=== PATIENT | female | born 1945 | race Caucasian/White ===

== ENCOUNTER 2017-02-16 15:23 | Observation (INO) ==
--- NOTE | 2017-02-16 19:14 | Internal Med History&Physical ---
Date of Encounter: 02/16/17 Time of Encounter: 19:10 Assessment and Plan (1) Coronary artery disease Current visit: Yes Status: Acute Continue with aspirin and Brilinta. Hold beta erna due to reported episodes of low heart rate. Trend troponin to rule out ACS. Qualifiers: Coronary Disease-Associated Artery/Lesion type: [place] artery [place] vs. transplanted heart: [place] heart Associated angina: without angina Qualified Code(s): I25.10 - Atherosclerotic heart disease of [place] coronary artery without angina pectoris (2) COPD (chronic obstructive pulmonary disease) Current visit: No Status: Chronic No evidence of exacerbation. We will use DuoNeb inhaled as needed. Qualifiers: COPD type: emphysema Emphysema type: unspecified Qualified Code(s): J43.9 - Emphysema, unspecified (3) Tobacco abuse Current visit: No Status: Acute Advised smoking cessation. She is not ready to quit. (4) Hyperlipemia Current visit: No Status: Acute Continue with statin. Qualifiers: Hyperlipidemia type: unspecified Qualified Code(s): E78.5 - Hyperlipidemia , unspecified (5) Supraventricular arrhythmia Current visit: Yes Status: Acute There is no evidence of A. fib on EKG. Her EKGs when compared with a prior EKG from December 2015 looked more like normal sinus rhythm with short UT interval with multiple PVCs. The patient's son reports her heart rate was as low as 30 at [facility]. I suspect symptomatic sinus bradycardia versus heart block. She does have episodes of dizziness which could be related to bradycardia. She denies syncopal episodes. Monitor patient on telemetry. Hold carvedilol. Trend troponin. Obtain echocardiogram in the morning. Consult cardiology. Internal Medicine - H&P: HPI Chief complaint: Shortness of breath Admitted From: Hospital to Hospital Transfer Plans for Post Hospital Care: Home History of present illness: Ms. Morris is a 71 year old female with past medical history significant for COPD, hyperlipidemia and CAD/status post stent placement who was sent from [facility] urgent care for evaluation and management of new onset atrial fibrillation. She presented there due to shortness of breath which he reports as moderate, associated with cough mostly dry but sometimes productive of small amounts of green sputum. Shortness of breath has been going on for 2 months and she has received several treatments that have not improved her symptoms. She denies associated fevers chills and chest pain. While evaluated at [facility] care her heart rate was irregular and per her son's report dropped into the 30s. An EKG was performed there and was read as atrial fibrillation and therefore the patient was referred for transfer to our facility for further workup. Patient reports episodes of dizziness and lightheadedness, more generalized weakness, shortness of breath, wheezing, chronic cough. The remainder of 10 point review of systems was negative. Past medical history as above Past surgical history: Cholecystectomy and Family history positive for premature coronary artery disease in both parents. Patient's father at age 43 of a massive MT. Patient's mother had open heart surgery in her 50s. Social history: She smokes 10 cigarettes a day, trying to cut down, denies alcohol and drug use. Past Med Surg Social Fam HX - Past Medical History Medical history: arthritis, COPD, coronary artery disease, hyperlipidemia, hypertension, myocardial infarction Psychiatric history: depression - Social History Smoking Status: Current every day smoker Smokeless Tobacco Status: No Alcohol use: none Drug use: none Internal Medicine - H&P: Meds Ezetimibe [Zetia] 10 mg PO DAILY 02/13/15 [History] Sertraline [Zoloft] 50 mg PO DAILY 02/13/15 [History] Zolpidem [Ambien] 10 mg PO HS PRN 02/13/15 [History] Gabapentin [Neurontin] 600 mg PO TID 01/27/16 [History] Hydrocodone/Acetaminophen [[place] 7.5-325 Tablet] 1 tab PO Q6H PRN 01/27/16 [ History] Albuterol Sulfate [Albuterol Inhaler] 2 puff IH Q4HR PRN 01/28/16 [History] Aspirin 81 mg PO DAILY 01/28/16 [History] Cyanocobalamin (Vitamin B-12) [Vitamin B-12] 1,000 mcg SL DAILY 01/28/16 [ History] Nitroglycerin [Nitrostat] 0.4 mg SL Q5M PRN 01/28/16 [History] Atorvastatin [Lipitor] 80 mg PO HS #30 tablet 01/29/16 [Rx] Carvedilol [Coreg] 6.25 mg PO BIDWM #0 tablet 01/29/16 [Rx] Isosorbide MONOnitrate (24 HR) [Imdur] 30 mg PO DAILY #0 tab.er.24h 01/29/16 [Rx ] Lisinopril [Zestril] 2.5 mg PO DAILY #30 tablet 01/29/16 [Rx] Ticagrelor [Brilinta] 90 mg PO BID #60 tablet 01/29/16 [Rx] 3 Allergy/AdvReac Type Severity Reaction Status Date / Time atropine [From ] Allergy Hives Verified 04/03/15 13:00 Hyoscyamine [From ] Allergy Hives Verified 04/03/15 13:00 phenobarbital Allergy Swelling Verified 02/13/15 12:01 of Lip/Tongue/Throat scopolamine [From ] Allergy Hives Verified 04/03/15 13:00 All Systems PM: A 10-system review of systems was performed and is negative for pertinent findings except as documented above in the HPI. - Constitutional Vitals: Temp Pulse Resp BP Pulse Ox 98.1 F 85 16 144/74 96 02/16/17 18:01 02/16/17 18:01 02/16/17 18:01 02/16/17 18:01 02/16/17 18:01 General appearance: Present: A&O X 3, no acute distress - Eye Eye exam: Present: PERRL, conjuntiva pink, sclera anicteric Pupils: Present: PERRL - Respiratory Respiratory exam: Present: decreased breath sounds, CTAB. Absent: accessory muscle use, rales, rhonchi, wheezes - Cardiovascular Cardiovascular exam: Present: irregular rhythm, +S1, +S2. Absent: diastolic murmur, gallop, rubs, systolic murmur - GI/Abdominal GI/Abdominal exam: Present: normal bowel sounds, soft, no peritoneal signs. Absent: distended, tenderness - Extremities Exam Extremities exam: Present: warm, radial pulses palpable and symmetrical. Absent : calf tenderness, cyanotic, pedal edema - Neurological Exam Neurological exam: Present: CN II-XII intact, oriented X3, no focal deficits. Absent: pronater drift, facial droop, speech deficit - Skin Skin exam: Present: dry, intact Internal Med - H&P Results - Labs Labs: Per records from Case's daughter laboratory data performed today: Troponin 0.03, magnesium 2.0, sodium 137, potassium 4.5, creatinine 0.6, glucose 108. CBC: White blood cell count 17.2, hemoglobin 14.0, platelet count 403. 2 EKGs performed at [facility] reviewed by myself show supraventricular rhythm with rate of 80 bpm, likely sinus rhythm with short UT interval, multiple PVCs. No ST or T-wave changes. EKG from December 2015 reviewed in the record shows normal sinus rhythm with short UT interval. - EKG Data -: EKG Interpreted by Myself - EKG Data Prior EKG available for review: yes
[2017-02-16] MEDS ORDERED: Nitroglycerin 0.4 MG TAB.SUBL SL PRN (19:28)
[2017-02-16] MEDS ORDERED: Naloxone 0.4 MG/ML INJ IVP PRN (19:30)
[2017-02-16] MEDS ORDERED: Ondansetron 4 MG/2 ML VIAL IVP PRN (19:30)
[2017-02-16] MEDS ORDERED: Acetaminophen 325 MG TABLET PO PRN (19:30)
[2017-02-16] MEDS: *HR* HYDROcodone/Acet 5/325 mg TABLET PO PRN (21:41)
[2017-02-16] MEDS: *HR* Ticagrelor 90 MG TABLET PO SCH (21:41)
[2017-02-17 01:47] LABS: Basophils # 0.1 K/mcL (0.0-0.2); Basophils % 0.4 %; Eosinophils # 0.2 K/mcL (0.0-0.6); Eosinophils % 0.8 %; Hematocrit 44.6 % (35.3-44.9); Hemoglobin 14.9 g/dL (11.5-15.4); Immature Granulocytes % 0.5 % (0-4); Lymphocytes # 3.4 K/mcL (0.6-4.6); Mean Corpuscular HGB Conc 33.4 g/dL (31.6-35.5); Mean Corpuscular Hemoglobin 30.7 pg (28.0-33.3); Mean Platelet Volume 8.6 fL (9.4-12.4); Monocytes # 1.7 K/mcL (0.0-1.3); Neutrophils # 18.6 K/mcL (1.6-8.9); Platelet Count 353 K/mcL (140-400); Red Blood Count 4.85 M/mcL (3.82-4.97); Red Cell Distribution Width 14.8 % (11.5-14.5); Segmented Neutrophils % 77.3 %
[2017-02-17 01:59] LABS: BUN/Creatinine Ratio 25 (6-26); Blood Urea Nitrogen 16 mg/dL (7-20); Calcium 9.4 mg/dL (8.6-10.8); Carbon Dioxide 24 mEq/L (19-29); Chloride 106 mEq/L (98-109); Chol/HDL Ratio 2.7 (0-4.9); Cholesterol 170 mg/dL (< 200); Glucose 80 mg/dL (70-99); HDL Cholesterol 63 mg/dL (40-59); LDL Cholesterol,Calculated 56 mg/dL (0-99); Magnesium 2.2 mg/dL (1.6-2.6); Osmolality,Calculated 292 (280-300); Sodium 141 mEq/L (136-145); Triglycerides 256 mg/dL (< 150); eGFR For African Americans > 60 (> 60); eGFR For Non-African Americans > 60 (> 60)
--- NOTE | 2017-02-17 04:20 | Event Note ---
Date of Encounter: 02/17/17 Time of Encounter: 04:00 Notified by RN at 03:55 that patient's WBC is 24.0 with left shift, yet she is not on any antibiotic therapy. Hospital records were reviewed and her WBC was 17.2 yesterday at [facility]. On exam, patient reports she recently finishing a 2 week course of antibiotics for an upper respiratory infection and still has green sputum production. She also reports diarrhea for the past several days with > 3 episodes daily. Patient reports exposure to multiple sick contacts at home upper respiratory infections and denies having any fevers, chills, CP, SOB, abd pain, N/V/C, dysuria, hematuria, or urinary frequency. Vital signs remain stable, patient is afebrile, and has no difficulty breathing or abdominal tenderness on exam. Given recent antibiotic use, diarrhea, and productive cough, will start empiric Vanc and Zosyn at this time, send stool studies for C. diff toxin, initiate contact precautions, and perform urinalysis. Consider obtaining blood cultures, lactic acid level, and CXR if patient starts developing a fever or meets SIRS criteria. Plan to de-escalate antibiotics and switch to Flagyl PO if she is positive for C. diff.
[2017-02-17 04:53] LABS: Bilirubin,Urine Negative (Negative); Blood,Urine Negative (Negative); Clarity,Urine Cloudy (Clear); Color,Urine Yellow (Yellow); Glucose,Urine (UA) Normal (Normal); Ketones,Urine Negative (Negative); Leukocyte Esterase,Urine Small (Negative); Nitrite,Urine Negative (Negative); Protein,Urine Negative (Neg-Trace); Specific Gravity,Urine 1.018 (1.010-1.025); Urobilinogen,Urine Normal (Normal)
[2017-02-17 04:54] LABS: Bacteria,Urine None Seen per hpf (None-Few); Hyaline Casts,Urine None Seen per lpf (None-Few); Squamous Epithelial Cell,Urine Many per lpf (None-Few); WBC,Urine 15-30 per hpf (0-3)
[2017-02-17] MEDS ORDERED: Vancomycin 750 MG in D5% in Water 250 ML IVPB SCH ×2 (05:00→06:00)
[2017-02-17 05:04] LABS: Yeast,Urine Moderate per hpf (None Seen)
[2017-02-17] MEDS: metroNIDAZOLE 500 MG TABLET PO SCH ×3 (05:58→21:35)
[2017-02-17] MEDS: *HR* HYDROcodone/Acet 5/325 mg TABLET PO PRN ×3 (06:01→14:25)
[2017-02-17] MEDS ORDERED: Piperacillin/Tazobactam 3.375 GM in D5% in Water (Mini-Bag+) 100 ML IVPB SCH (08:00)
[2017-02-17] MEDS: *HR* Ticagrelor 90 MG TABLET PO SCH ×2 (09:47→21:34)
[2017-02-17] MEDS: Isosorbide MONOnitrate (24 HR) 30 MG TAB.ER.24H PO SCH (09:47)
[2017-02-17] MEDS: Aspirin 81 MG TAB.CHEW PO SCH (09:47)
[2017-02-17] MEDS: Ipratropium/Albuterol Neb 3 ML IH SCH ×3 (10:15→21:20)
[2017-02-17 11:32] LABS: Adenovirus Not Detected (Not Detect); Bordetella Pertussis Not Detected (Not Detect); Chlamydophila pneumoniae Not Detected (Not Detect); Coronavirus 229E Not Detected (Not Detect); Coronavirus HKU1 Not Detected (Not Detect); Coronavirus NL63 Not Detected (Not Detect); Coronavirus OC43 Not Detected (Not Detect); Human Metapneumovirus Not Detected (Not Detect); Human Rhinovirus/Enterovirus Not Detected (Not Detect); Influenza A Subtype 2009 H1 Not Detected (Not Detect); Influenza A Untypeable Not Detected (Not Detect); Influenza B Not Detected (Not Detect); Mycoplasma pneumoniae Not Detected (Not Detect); Parainfluenza Virus 1 Not Detected (Not Detect); Parainfluenza Virus 2 Not Detected (Not Detect); Parainfluenza Virus 3 Not Detected (Not Detect); Parainfluenza Virus 4 Not Detected (Not Detect); Respiratory Syncytial Virus Not Detected (Not Detect)
--- NOTE | 2017-02-17 12:09 | Cardiology Consult Note ---
Date of Encounter: 02/17/17 Time of Encounter: 12:06 Assessment and Plan (1) Atrial ectopy Current Visit: Yes Status: Acute EKG and telemetry show sinus rhythm with PACs and PVCs. On Coreg 3.125mg BID at home, will increase to 6.25mg BID. No evidence of A-Fib. K 4.0, Mag 2.2, check TSH. Known EF 40-45% on echo 12/2015. Recheck echo to evaluate for any changes. Recommend holter at discharge. If no significant findings on echo, anticipate sign off from cardio standpoint with outpt follow-up with Dr. Mendoza. (2) Ventricular ectopy Current Visit: Yes Status: Acute As above. (3) Coronary artery disease Current Visit: Yes Status: Acute [facility] 01/28/16--unable to cross RCA lesion. Hx of PCI as well. Medical management recommended on [facility] 01/28/16. Continue ASA, Brilinta, Statin, BB. Qualifiers: Coronary Disease-Associated Artery/Lesion type: [place] artery [place] vs. transplanted heart: [place] heart Associated angina: without angina Qualified Code(s): I25.10 - Atherosclerotic heart disease of [place] coronary artery without angina pectoris (4) Ischemic cardiomyopathy Current Visit: Yes Status: Chronic Echo 01/28/16 EF 40-45% with wall motion abnormalities, known hx of CAD. Continue BB. Currently not on ACEi/ARB. Recommend adding prior to d/c if BP and renal function tolerate. (5) Dyspnea Current Visit: Yes Status: Acute Worsening dyspnea over past 2 months. Known ICMP, EF 40-45%, euvolemic on exam. Recheck echo to evaluate structure and function. Qualifiers: Dyspnea type: unspecified Qualified Code(s): R06.00 - Dyspnea, unspecified Discussion w patient/family: The assessment and plan as outlined above was discussed with the patient and/or family members who expressed understanding and agreement. All questions were answered. Thank you for involving us in the care of your patient. Please call with any questions. I will discuss all the above with Dr. Garcia and make changes as necessary. History of Present Illness Consult date: 02/17/17 Requesting physician: Keo Murray Consult reason: A-Fib, bradycardia Chief complaint: dyspnea History of present illness: Ms. Morris is a 71 year old female with PMH significant for COPD, hyperlipidemia and CAD with hx of PCI who was sent from [facility] urgent care for evaluation and management of what was thought to be new onset atrial fibrillation. She presented there due to shortness of breath which he reports as moderate, associated with cough mostly dry but sometimes productive of small amounts of green sputum. Shortness of breath has been going on for 2 months and she has received several treatments that have not improved her symptoms. She denies associated fevers chills or chest pain. While evaluated at [facility] urgent care her heart rate was irregular and per her son's report dropped into the 30s on pulse ox. An EKG was performed there and was read as atrial fibrillation and therefore the patient was referred for transfer to our facility for further workup. Cardiology consulted for further recommendations. EKGs reviewed--No evidence of A-Fib. EKGs show sinus rhythm, short [place] interval, with PACs and PVCs. 24 hr tele reviewed--AVG HR 86, sinus rhythm with PACs and PVCs. No bradycardic events and no A-Fib noted. Troponins have been negative. Prior CV testing: [facility] 01/28/16: Severe 1 vessel CAD, EF 35%. Unable to cross RCA lesion despite use of multiple wires and balloons. Echo 01/28/16: LVEF 40-45%, wall motion abnormalities. Mild LVDD, moderately dilated LA, mild phtn. Past Med Surg Social Fam HX - Past Medical History Medical history: arthritis, cardiomyopathy, COPD, coronary artery disease, hyperlipidemia, hypertension, myocardial infarction Psychiatric history: depression - Past Surgical History Surgical History: angioplasty/stent - Social History Smoking Status: Current every day smoker Smokeless Tobacco Status: No Alcohol use: none Drug use: none - Family History Mother Living Status: Hx Family Cardiac Disorders: Yes (multiple heart attack, triple bypass) Father Living Status: Hx Family Cardiac Disorders: Yes (heart attack) Medications and Allergies Ezetimibe [Zetia] 10 mg PO DAILY 02/13/15 [History] Sertraline [Zoloft] 50 mg PO DAILY 02/13/15 [History] Gabapentin [Neurontin] 600 mg PO TID 01/27/16 [History] Albuterol Sulfate [Albuterol Inhaler] 2 puff IH Q4HR PRN 01/28/16 [History] Aspirin 81 mg PO DAILY 01/28/16 [History] Cyanocobalamin (Vitamin B-12) [Vitamin B-12] 1,000 mcg SL DAILY 01/28/16 [ History] Nitroglycerin [Nitrostat] 0.4 mg SL Q5M PRN 01/28/16 [History] Atorvastatin [Lipitor] 80 mg PO HS #30 tablet 01/29/16 [Rx] Isosorbide MONOnitrate (24 HR) [Imdur] 30 mg PO DAILY #0 tab.er.24h 01/29/16 [Rx ] Ticagrelor [Brilinta] 90 mg PO BID #60 tablet 01/29/16 [Rx] Carvedilol 3.125 mg PO BID 02/16/17 [History] HYDROcodone/Acet 10/325 mg [[place] 10-325 mg] 1 tab PO Q6HR PRN 02/16/17 [History ] Trazodone HCl 100 mg PO HS 02/16/17 [History] 3 Allergy/AdvReac Type Severity Reaction Status Date / Time atropine [From ] Allergy Hives Verified 04/03/15 13:00 Hyoscyamine [From ] Allergy Hives Verified 04/03/15 13:00 phenobarbital Allergy Swelling Verified 02/13/15 12:01 of Lip/Tongue/Throat scopolamine [From ] Allergy Hives Verified 04/03/15 13:00 All Systems Review: A 10-system review of systems was performed and is negative for pertinent findings except as documented above in the HPI. - Cardiovascular Cardiovascular: as per HPI, dyspnea at rest, dyspnea on exertion - Respiratory Respiratory: cough, dyspnea Physical Examination Vital Signs, Last 4 Hours Temp Pulse Resp BP Pulse Ox 02/17/17 12:05 97.9 F 77 16 103/67 95 02/17/17 10:17 17 95 02/17/17 08:47 98.1 F 86 16 130/72 95 Vital Signs Temp Pulse Resp BP Pulse Ox 02/17/17 12:05 97.9 F 77 16 103/67 95 02/17/17 10:17 17 95 02/17/17 08:47 98.1 F 86 16 130/72 95 02/17/17 03:42 98.2 F 86 16 129/77 93 02/16/17 22:38 98.7 F 89 16 132/87 94 02/16/17 19:30 98.1 F 87 15 137/77 95 02/16/17 18:01 98.1 F 85 16 144/74 96 Intake and Output 02/16/17 02/17/17 02/17/17 23:59 07:59 15:59 Intake Total 360 / 360 Balance 360 / 360 Intake: Oral 360 / 360 Other: Meal Breakfast Percent of Meal Consumed 100% Weight 52.163 kg 53.615 kg Patient Weight 02/17/17 23:59 Weight 53.615 kg General: Conversant, No Apparent Distress HEENT: Atraumatic, Normocephaly, Mucus Membranes Moist Neck: No JVD, Normal carotid pulses Cardiac: Reg Rate and Rhythm, Normal S1 and S2, No Murmur Lungs: Other (diminished) Neuro: Alert and responsive, No focal deficits noted Abdomen: Soft, Non-Tender Skin: No rashes noted on visualized skin Musculoskeletal: No Chest Wall Tenderness Extremities: No Clubbing, No Cyanosis, No Edema, Normal Pulses Results 02/17/17 01:26 02/17/17 01:26 Lab Results 02/16/17 02/16/17 02/17/17 20:34 20:34 01:26 WBC Hgb Hct Plt Count Sodium Potassium Chloride Carbon Dioxide BUN Creatinine Glucose Calcium Magnesium Troponin I 0.01 0.02 B-Natriuretic Peptide 191 H 02/17/17 02/17/17 01:26 01:26 WBC 24.0 H Hgb 14.9 Hct 44.6 Plt Count 353 Sodium 141 Potassium 4.0 Chloride 106 Carbon Dioxide 24 BUN 16 Creatinine 0.64 Glucose 80 Calcium 9.4 Magnesium 2.2 Troponin I B-Natriuretic Peptide Short CBC 02/17/17 Range/Units 01:26 WBC 24.0 H (4.3-11.1) K/mcL Hgb 14.9 (11.5-15.4) g/dL Hct 44.6 (35.3-44.9) % Plt Count 353 (140-400) K/mcL Neutrophils # 18.6 H (1.6-8.9) K/mcL BMP 02/17/17 Range/Units 01:26 Sodium 141 (136-145) mEq/L Potassium 4.0 (3.5-4.5) mEq/L Chloride 106 (98-109) mEq/L Carbon Dioxide 24 (19-29) mEq/L BUN 16 (7-20) mg/dL Creatinine 0.64 (0.57-1.11) mg/dL Glucose 80 (70-99) mg/dL Calcium 9.4 (8.6-10.8) mg/dL Cardiac Enzymes 02/17/17 02/16/17 Range/Units 01:26 20:34 Troponin I 0.02 0.01 (0-0.03) ng/mL Urine 02/17/17 Range/Units Unknown Urine Color Yellow (Yellow) Urine Clarity Cloudy A (Clear) Urine pH 6.0 (5.0-8.0) pH Units Ur Specific [place] 1.018 (1.010-1.025) Urine Protein Negative (Neg-Trace) mg/dL Urine Glucose (UA) Normal (Normal) mg/dL Impressions Chest CT 02/17/17 09:15 IMPRESSION: 1. Stable pulmonary nodule right lower lobe 1.2 x 1.1 cm. Refer to Fleischner criteria follow-up. 2. Emphysema. RECOMMENDATIONS: Fleischner Society guidelines for follow-up and management of incidentally detected pulmonary nodules: Single Solid Nodule: Nodule size less than 6 mm In a low-risk patient, no routine follow-up. In a high-risk patient, optional CT at 12 months. Nodule size equals 6-8 mm In a low-risk patient, CT at 6-12 months, then consider CT at 18-24 months. In a high-risk patient, CT at 6-12 months, then CT at 18-24 months. Nodule size greater than 8 mm In a low-risk patient, consider CT, PET/CT, or tissue sampling at 3 months. In a high-risk patient, consider CT, PET/CT, or tissue sampling at 3 months. Multiple Solid Nodules: Nodule size less than 6 mm In a low-risk patient, no routine follow-up. In a high-risk patient, optional CT at 12 months. Nodule size equals 6-8 mm In a low-risk patient, CT at 3-6 months, then consider CT at 18-24 months. In a high-risk patient, CT at 3-6 months, then CT at 18-24 months. Nodule size greater than 8 mm In a low-risk patient, CT at 3-6 months, then consider CT at 18-24 months. In a high-risk patient, CT at 3-6 months, then CT at 18-24 months. - Low risk patients include individuals with minimal or absent history of smoking and other known risk factors. - High risk patients include individuals with a history or smoking or known risk factors. Radiology 2017 http://pubs.rsna.org/doi/full/10.1148/radiol.4526920029 D/ / Alphonso Gonzalez MD / Alphonso Gonzalez MD Interpreting Provider: Alphonso Gonzalez MD Active Medications Acetaminophen (Tylenol) 650 mg PO Q6HR PRN PRN Reason: Mild Pain (1-3) Stop: 08/18/17 19:31 Hydrocodone Bitart/Acetaminophen ([place] 5-325 Mg) 1 tab PO Q4HR PRN PRN Reason: Moderate Pain (4-6) Stop: 08/18/17 19:31 Last Admin: 02/17/17 10:25 Dose: 1 tab Albuterol/Ipratropium (Duoneb) 3 ml IH [id number] LATRICIA Stop: 08/19/17 10:01 Last Admin: 02/17/17 10:15 Dose: 3 ml Aspirin (Aspirin) 81 mg PO DAILY LATRICIA Stop: 08/19/17 09:01 Last Admin: 02/17/17 09:47 Dose: 81 mg Atorvastatin Calcium (Lipitor) 80 mg PO HS LATRICIA Stop: 08/18/17 21:01 Last Admin: 02/16/17 21:41 Dose: 80 mg Isosorbide Mononitrate (Imdur) 30 mg PO DAILY LATRICIA Stop: 08/19/17 09:01 Last Admin: 02/17/17 09:47 Dose: 30 mg Metronidazole (Flagyl) 500 mg PO TID LATRICIA PRN Reason: Protocol Stop: 03/03/17 05:51 Last Admin: 02/17/17 05:58 Dose: 500 mg Naloxone HCl (Narcan) 0.4 mg IVP Q2MIN PRN PRN Reason: Opioid Reversal Stop: 08/18/17 19:31 Nitroglycerin (Nitroglycerin) 0.4 mg SL Q5M PRN PRN Reason: Chest Pain Stop: 08/18/17 19:29 Ondansetron HCl (Zofran) 4 mg IVP Q8HR PRN PRN Reason: Nausea And Vomiting Stop: 08/18/17 19:31 Sertraline HCl (Zoloft) 50 mg PO DAILY LATRICIA Stop: 08/19/17 09:01 Last Admin: 02/17/17 09:47 Dose: 50 mg Ticagrelor (Brilinta) 90 mg PO BID LATRICIA Stop: 08/18/17 21:01 Last Admin: 02/17/17 09:47 Dose: 90 mg Zolpidem Tartrate (Ambien) 10 mg PO HS PRN; Protocol PRN Reason: Sleep Stop: 08/18/17 19:29 - Imaging and Cardiology Echo: report reviewed Cardiac cath: report reviewed - EKG Interpretation EKG results cardiology: other (12 hr tele AVG HR 86, SR with PACs and PVCs)
[2017-02-17] MEDS ORDERED: Aminoglycoside Consult 1 EACH MC ONE (13:44)
--- NOTE | 2017-02-17 15:03 | Internal Med Progress Note ---
Date of Encounter: 02/17/17 Time of Encounter: 07:45 - Assessment and plan (1) COPD (chronic obstructive pulmonary disease) Current Visit: No Status: Chronic Assessment and plan: Karen Morris is a 71-year-old female with past medical history COPD and CAD who presented to outside hospital on 02/16/2017 with complaints of worsening shortness of breath. She was transferred to [facility] for further workup and treatment. 1. COPD: Per history. Current smoker. Has been treated 3 times in the last 6 weeks with ATB and steroids for URI. Presented to outside hospital with worsening shortness of breath. Chest CT with stable RLL nodule and emphysema, otherwise non-acute. Appears significantly improved on 02/17 exam. No wheezing noted. Afebrile, WBC 24K (has been on steroids). Received 1 dose IV Vanco and Zosyn. Hold on respiratory ATB at this time as radiographic evidence of pneumonia and clinically does not appear to have pneumonia despite elevated WBC. Hold on steroids as no wheezing. Continue scheduled nebulizers and home inhalers. 2. C. difficile: Has been on multiple rounds of ATB in the outpatient setting. Admission stool sample positive for C. difficile. Continue PO Flagyl. 3. Leukocytosis: WBC 24K, in the setting of recent steroid use and C. difficile. Does not appear acute or toxic. Blood cultures, lactic acid pending 4. Atrial ectopy: With reported atrial fib at outside Hospital prior to arrival. EKG and telemetry reviewed by cardiology who noted PACs and PVCs, no evidence of A. fib. Carvedilol increased per cardiology recommendations. Will need Holter monitor at discharge. 5. CAD: Per history. 12/2015 [facility] with EF 40-45% and wall motion abnormalities. Medical management was recommended at that time. Denies chest pain. Repeat echo essentially unchanged. Home BB increased as noted above. Continue home ASA, brilinta. Add low-dose RACHEL. And follow-up with outpatient cardiology. 6. Ischemic cardiomyopathy: Repeat echo 02/17/2017 with EF 40-45%, essentially unchanged from previous. Appears compensated. Home BB increased as noted above. Add low-dose RACHEL. 7. DVT prophylaxis: Heparin Qualifiers: COPD type: emphysema Emphysema type: unspecified Qualified Code(s): J43.9 - Emphysema, unspecified (2) Leukocytosis Current Visit: Yes Status: Acute Qualifiers: Leukocytosis type: unspecified Qualified Code(s): D72.829 - Elevated white blood cell count, unspecified (3) Coronary artery disease Current Visit: Yes Status: Acute Qualifiers: Coronary Disease-Associated Artery/Lesion type: [place] artery [place] vs. transplanted heart: ch[place] heart Associated angina: without angina Qualified Code(s): I25.10 - Atherosclerotic heart disease of [place] coronary artery without angina pectoris (4) Ischemic cardiomyopathy Current Visit: Yes Status: Chronic (5) Sinus bradycardia by electrocardiogram Current Visit: No Status: Acute - Subjective Interval history: Seen and examined at bedside. Patient is new to me, information obtained from chart review and patient report. Patient says she feels much better from yesterday. Still short of breath but significantly improved. No chest pain. Son at bedside and updated. - Constitutional Vitals: Temp Pulse Resp BP Pulse Ox 97.9 F 77 16 103/67 95 02/17/17 12:05 02/17/17 12:05 02/17/17 12:05 02/17/17 12:05 02/17/17 12:05 General appearance: Present: cachectic, mild distress, A&O X 3 - Head Head exam: Present: atraumatic, normocephalic - Eye Eye exam: Present: PERRL, conjuntiva pink, sclera anicteric Pupils: Present: PERRL - Neck Neck exam general surgery: Present: supple, trachea midline. Absent: lymphadenopathy - Respiratory Respiratory exam: Present: CTAB, rhonchi (Bilateral lobes with rhonchi post). Absent: accessory muscle use, rales, wheezes - Cardiovascular Cardiovascular exam: Present: RRR, +S1, +S2. Absent: diastolic murmur, gallop, rubs, systolic murmur - GI/Abdominal GI/Abdominal exam: Present: normal bowel sounds, soft, no peritoneal signs. Absent: distended, tenderness - Extremities Exam Extremities exam: Present: warm, radial pulses palpable and symmetrical. Absent : calf tenderness, cyanotic, pedal edema - Neurological Exam Neurological exam: Present: CN II-XII intact, oriented X3, no focal deficits. Absent: pronater drift, facial droop, speech deficit - Skin Skin exam: Present: dry, intact Internal Medicine: Result - Labs CBC & Chem 7: 02/17/17 01:26 02/17/17 01:26 Labs: Short CBC 02/17/17 Range/Units 01:26 WBC 24.0 H (4.3-11.1) K/mcL Hgb 14.9 (11.5-15.4) g/dL Hct 44.6 (35.3-44.9) % Plt Count 353 (140-400) K/mcL Neutrophils # 18.6 H (1.6-8.9) K/mcL BMP 02/17/17 01:26 Sodium 141 Potassium 4.0 Chloride 106 Carbon Dioxide 24 BUN 16 Creatinine 0.64 Glucose 80 Calcium 9.4 Cardiac Enzymes 02/16/17 02/17/17 Range/Units 20:34 01:26 Troponin I 0.01 0.02 (0-0.03) ng/mL Urine 02/17/17 Range/Units Unknown Urine Color Yellow (Yellow) Urine Clarity Cloudy A (Clear) Urine pH 6.0 (5.0-8.0) pH Units Ur Specific [place] 1.018 (1.010-1.025) Urine Protein Negative (Neg-Trace) mg/dL Urine Glucose (UA) Normal (Normal) mg/dL - Impressions Impressions Echocardiogram 02/17/17 08:30 Impressions: Sinus rhythm with frequent PVCs. Mild LV systolic dysfunction, LVEF 40-45%. There are regional wall motion abnormalities, see diagram below. Mild left ventricular diastolic dysfunction. Normal right ventricular size and function. Mildly dilated left atrium. Mild mitral regurgitation. Mild pulmonic regurgitation. Mild pulmonary hypertension. Estimated RVSP = 36 mmHg. Left Ventricular Wall Motion: Rest Echo Findings The mid inferior lateral and basal inferior lateral swain were hypokinetic. The mid inferior, basal inferior and basal inferior septal swain were akinetic. All other wall segments showed normal motion. Findings: Study Quality * Technically adequate exam. ECG Findings * Sinus rhythm with frequent PVCs. Left Ventricle * Mild LV systolic dysfunction, LVEF 40-45%. There are regional wall motion abnormalities, see diagram below. * Normal LV chamber size and wall thickness. * Mild left ventricular diastolic dysfunction. Right Ventricle * Normal right ventricular size and function. Left Atrium * Mildly dilated left atrium. Right Atrium * Normal right atrial size. Aorta * Normally sized aortic root. Pericardium * There is no pericardial effusion present. IVC * Normal IVC dimensions and inspiratory collapse. Aortic Valve * Trileaflet aortic valve. * Mildly sclerotic aortic valve leaflets. * No aortic stenosis. * No aortic regurgitation. Mitral Valve * Mild mitral annular calcification * No mitral stenosis. * Mild mitral regurgitation. Tricuspid Valve * Normal tricuspid valve structure. * No tricuspid stenosis. * Trace tricuspid regurgitation. * Mild pulmonary hypertension. Estimated RVSP = 36 mmHg. Pulmonic Valve * Pulmonic valve not well visualized. * No pulmonic stenosis. * Mild pulmonic regurgitation. Chest CT 02/17/17 09:15 IMPRESSION: 1. Stable pulmonary nodule right lower lobe 1.2 x 1.1 cm. Refer to Fleischner Criteria follow-up. 2. Emphysema. RECOMMENDATIONS: Fleischner Society guidelines for follow-up and management of incidentally detected pulmonary nodules: Single Solid Nodule: Nodule size less than 6 mm In a low-risk patient, no routine follow-up. In a high-risk patient, optional CT at 12 months. Nodule size equals 6-8 mm In a low-risk patient, CT at 6-12 months, then consider CT at 18-24 months. In a high-risk patient, CT at 6-12 months, then CT at 18-24 months. Nodule size greater than 8 mm In a low-risk patient, consider CT, PET/CT, or tissue sampling at 3 months. In a high-risk patient, consider CT, PET/CT, or tissue sampling at 3 months. Multiple Solid Nodules: Nodule size less than 6 mm In a low-risk patient, no routine follow-up. In a high-risk patient, optional CT at 12 months. Nodule size equals 6-8 mm In a low-risk patient, CT at 3-6 months, then consider CT at 18-24 months. In a high-risk patient, CT at 3-6 months, then CT at 18-24 months. Nodule size greater than 8 mm In a low-risk patient, CT at 3-6 months, then consider CT at 18-24 months. In a high-risk patient, CT at 3-6 months, then CT at 18-24 months. - Low risk patients include individuals with minimal or absent history of smoking and other known risk factors. - High risk patients include individuals with a history or smoking or known risk factors. Radiology 2017 http://pubs.rsna.org/doi/full/10.1148/radiol.[email or web address] D/ / 02/17/2017 12:58:26 Alphonso Gonzalez MD / celia Interpreting Provider: Alphonso Gonzalez MD
[2017-02-17] MEDS: Gabapentin 300 MG CAPSULE PO SCH ×2 (17:02→21:34)
[2017-02-17] MEDS ORDERED: traZODone 50 MG TABLET PO SCH (21:00)
[2017-02-17] MEDS: *HR* Heparin 5,000 UNIT/ML VIAL SQ SCH (21:34)
[2017-02-18] MEDS: *HR* HYDROcodone/Acet 5/325 mg TABLET PO PRN ×2 (00:26→10:06)
[2017-02-18] MEDS: Ipratropium/Albuterol Neb 3 ML IH SCH ×2 (05:12→11:20)
[2017-02-18 05:39] LABS: Hematocrit 42.2 % (35.3-44.9); Hemoglobin 13.5 g/dL (11.5-15.4); Mean Corpuscular Hemoglobin 29.9 pg (28.0-33.3); Mean Corpuscular Volume 93.4 fL (83.0-100.0); Mean Platelet Volume 8.6 fL (9.4-12.4); Platelet Count 329 K/mcL (140-400); Red Blood Count 4.52 M/mcL (3.82-4.97); Red Cell Distribution Width 14.7 % (11.5-14.5)
[2017-02-18 06:06] LABS: Alanine Aminotransferase 13 Units/L (0-55); Albumin 3.3 g/dL (3.5-5.0); Alkaline Phosphatase 30 Units/L (38-126); Aspartate Amino Transferase 11 Units/L (5-34); BUN/Creatinine Ratio 17 (6-26); Bilirubin,Total 0.7 mg/dL (0.2-1.2); Blood Urea Nitrogen 13 mg/dL (7-20); Calcium 9.3 mg/dL (8.6-10.8); Carbon Dioxide 26 mEq/L (19-29); Chloride 105 mEq/L (98-109); Globulin 3.3 g/dL (2.4-3.5); Glucose 108 mg/dL (70-99); Osmolality,Calculated 293 (280-300); Potassium 3.7 mEq/L (3.5-4.5); Sodium 141 mEq/L (136-145); Total Protein 6.6 g/dL (6.0-8.3); eGFR For African Americans > 60 (> 60); eGFR For Non-African Americans > 60 (> 60)
[2017-02-18] MEDS: *HR* Heparin 5,000 UNIT/ML VIAL SQ SCH (06:09)
[2017-02-18 07:22] LABS: Thyroid Stimulating Hormone 1.669 mcIU/mL (0.350-4.840)
[2017-02-18] MEDS: Aspirin 81 MG TAB.CHEW PO SCH (10:00)
[2017-02-18] MEDS: *HR* Ticagrelor 90 MG TABLET PO SCH (10:01)
[2017-02-18] MEDS: metroNIDAZOLE 500 MG TABLET PO SCH (10:01)
[2017-02-18] MEDS: Gabapentin 300 MG CAPSULE PO SCH (10:01)
[2017-02-18] MEDS: Isosorbide MONOnitrate (24 HR) 30 MG TAB.ER.24H PO SCH (10:02)
[2017-02-18 11:41] VITALS: BP 94/59
--- NOTE | 2017-02-18 11:49 | Discharge Summary ---
Date of Encounter: 02/18/17 Time of Encounter: 11:54 - Discharge Diagnosis (1) COPD (chronic obstructive pulmonary disease) Priority: Primary Status: Chronic Comments: Karen Morris is a 71-year-old female with past medical history COPD and CAD who presented to outside hospital on 02/16/2017 with complaints of worsening shortness of breath. She was transferred to [facility] for further workup and treatment. Her symptoms significantly improved with breathing treatments alone. She was evaluated by cardiology who adjusted medications as noted below. A holter monitor was placed prior to discharge. She was discharged home on 02/18/2017 in stable condition with outpatient follow -up. 1. COPD: Per history. Current smoker. Has been treated 3 times in the last 6 weeks with ATB and steroids for URI. Presented to outside hospital with worsening shortness of breath. Chest CT with stable RLL nodule and emphysema, otherwise non-acute. Symptoms significantly improved on arrival. No wheezing noted. Afebrile, WBC peaked at 24K (has been on steroids). Respiratory PCR negative. Received 1 dose IV Vanco and Zosyn. Suspect mild COPD exacerbation secondary to continued tobacco use. No indication for ATB as there is no radiographic evidence of pneumonia and clinically does not appear to have pneumonia despite elevated WBC. Hold on steroids as no wheezing and symptoms significantly improved with breathing treatments. Strongly encouraged smoking cessation. Continue home inhalers and nebulizers. Recommend follow-up with PCP within one week. 2. C. difficile: Has been on multiple rounds of outpatient ATB for URIs. Admission stool sample positive for C. difficile. Continue PO Flagyl for a total of 2 weeks. Recommend follow-up with PCP in 1-2 weeks. 3. Leukocytosis: WBC 24K, in the setting of recent steroid use and C. difficile. Lactic acid normal. Preliminary blood cultures negative. Does not appear acute or toxic. Hemodynamically stable. Repeat WBC down to 12K at discharge 4. Atrial ectopy: With reported atrial fib at outside Hospital prior to arrival. EKG and telemetry reviewed by cardiology who noted PACs and PVCs, no evidence of A. fib. Carvedilol increased per cardiology recommendations. Holter monitor applied at discharge. Can follow up with cardiology outpatient 5. CAD: Per history. 12/2015 [facility] with EF 40-45% and wall motion abnormalities. Medical management was recommended at that time. Denies chest pain. Repeat echo essentially unchanged. Home BB increased as noted above. Continue home ASA, brilinta. Add low-dose RACHEL. Can follow up with primary [facility] consultant outpatient 6. Ischemic cardiomyopathy: Repeat echo 02/17/2017 with EF 40-45%, essentially unchanged from previous. Appeared euvolemic. Home BB increased as noted above and low-dose RACHEL added. Recommend outpatient follow-up with primary [employer] consultant. 7. Pulmonary nodule: chest CT showed stable pulmonary nodule in right lower lobe. Recommend repeat CT in 1 year. Qualifiers: COPD type: emphysema Emphysema type: unspecified Qualified Code(s): J43.9 - Emphysema, unspecified (2) Leukocytosis Priority: Primary Status: Acute Qualifiers: Leukocytosis type: unspecified Qualified Code(s): D72.829 - Elevated white blood cell count, unspecified (3) Coronary artery disease Priority: Primary Status: Acute Qualifiers: Coronary Disease-Associated Artery/Lesion type: [place] artery [place] vs. transplanted heart: [place] heart Associated angina: without angina Qualified Code(s): I25.10 - Atherosclerotic heart disease of [place] coronary artery without angina pectoris (4) Ischemic cardiomyopathy Priority: Primary Status: Chronic (5) Sinus bradycardia by electrocardiogram Priority: Primary Status: Acute - Discharge Medications Prescriptions: Carvedilol [Coreg] 6.25 mg PO BIDWM #60 tablet Lisinopril [Zestril] 5 mg PO DAILY #30 tablet metroNIDAZOLE [Flagyl] 500 mg PO TID #42 tablet Home Medications: Ezetimibe [Zetia] 10 mg PO DAILY 02/13/15 [History] Sertraline [Zoloft] 50 mg PO DAILY 02/13/15 [History] Gabapentin [Neurontin] 600 mg PO TID 01/27/16 [History] Albuterol Sulfate [Albuterol Inhaler] 2 puff IH Q4HR PRN 01/28/16 [History] Aspirin 81 mg PO DAILY 01/28/16 [History] Cyanocobalamin (Vitamin B-12) [Vitamin B-12] 1,000 mcg SL DAILY 01/28/16 [ History] Nitroglycerin [Nitrostat] 0.4 mg SL Q5M PRN 01/28/16 [History] Atorvastatin [Lipitor] 80 mg PO HS #30 tablet 01/29/16 [Rx] Isosorbide MONOnitrate (24 HR) [Imdur] 30 mg PO DAILY #0 tab.er.24h 01/29/16 [Rx ] Ticagrelor [Brilinta] 90 mg PO BID #60 tablet 01/29/16 [Rx] HYDROcodone/Acet 10/325 mg [[place] 10-325 mg] 1 tab PO Q6HR PRN 02/16/17 [History ] Trazodone HCl 100 mg PO HS 02/16/17 [History] Carvedilol [Coreg] 6.25 mg PO BIDWM #60 tablet 02/18/17 [Rx] Lisinopril [Zestril] 5 mg PO DAILY #30 tablet 02/18/17 [Rx] metroNIDAZOLE [Flagyl] 500 mg PO TID #42 tablet 02/18/17 [Rx] Allergies/Adverse Reactions: 3 Allergy/AdvReac Type Severity Reaction Status Date / Time atropine [From ] Allergy Hives Verified 04/03/15 13:00 Hyoscyamine [From ] Allergy Hives Verified 04/03/15 13:00 phenobarbital Allergy Swelling Verified 02/13/15 12:01 of Lip/Tongue/Throat scopolamine [From ] Allergy Hives Verified 04/03/15 13:00 Procedures/tests Complete & Pending: Procedures Performed prior 72 hours Category Date Time Status CT chest wo con [CT] Routine Cat Scan 02/17/17 09:15 Completed ECG 12 lead ECG [ECG] Routine Y 02/16/17 20:00 Completed EV echocardiogram Routine Y 02/17/17 08:30 Completed Date of admission: 02/16/17 17:53 Consults: 02/16/17 19:32 Consult to Physician [CONS] Routine Consulting Provider: Tristen Garcia Reason for Consult: Near syncope, reported new onset A. fib Call Completed: Yes Discharging clinician: Ruth Montelongo Anticipated date of discharge: 02/18/17 - Patient Status Disposition: Home, Self-Care Condition: Good Functional capacity at discharge: independent ambulation Overall status at discharge: patient is progressing back to baseline - Discharge Instructions Instructions: Probiotic (By mouth), Holter Monitoring (DC), How to Stop Smoking (DC), Clostridium Difficile Infection (DC) Follow Up With: Karlos Mendoza, DO [Non-Partnered Physician] - Additional Instructions: Follow Up Appointment 1. Please call your primary care physician's office within 24 hours or next business day to schedule a follow up appointment. 2. A Holter monitor will be placed at discharge. Please call your [employer] consultant 's office within 24 hours or next business day to schedule a follow-up appointment. 3. Transmission of C. difficile: Clostridium difficile is shed in feces. Any surface, device, or material (e.g., toilets, bathing tubs, and electronic rectal thermometers) that becomes contaminated with feces may serve as a reservoir for the Clostridium difficile spores. Clostridium difficile can live for long periods on surface 4. CT scan of your chest showed a small nodule in the right lower lobe of your lung. With your smoking history, it is recommended to have a repeat CT scan of chest in one year - Diet and Activity Activity: increase activity as tolerated, resume usual activities as tolerated Diet: advance to your usual diet Interval History: Seen and examined at bedside. Patient says she feels significantly better and would like to go home today. She had one bowel movement this morning which was formed. No abdominal pain or cramping. No nausea or vomiting. She reports breathing is much better and feels like she is back to baseline. With shortness of breath on exertion but patient reports this is chronic for her. Strongly encouraged smoking cessation. Also advised patient on diagnosis of C. difficile and that is highly contagious. Recommended adding probiotic to diet. Will have Holter monitor placed before discharge. Hospital course: See assessment and plan for hospital course. - Time Spent with Patient Total time spent providing and/or coordinating discharge services: Less than 30 minutes - Constitutional Vitals: Temp Pulse Resp BP Pulse Ox 98.0 F 71 18 94/59 93 02/18/17 11:41 02/18/17 11:41 02/18/17 11:41 02/18/17 11:41 02/18/17 11:41 General appearance: Present: cachectic, A&O X 3 - Head Head exam: Present: atraumatic, normocephalic - Eye Eye exam: Present: PERRL, conjuntiva pink, sclera anicteric Pupils: Present: PERRL - Neck Neck exam general surgery: Present: supple, trachea midline. Absent: lymphadenopathy - Respiratory Respiratory exam: Present: decreased breath sounds, CTAB. Absent: accessory muscle use, rales, rhonchi, wheezes Additional comments: Diminished but clear to auscultation. Mildly dyspneic with exertion. - Cardiovascular Cardiovascular exam: Present: RRR, +S1, +S2. Absent: diastolic murmur, gallop, rubs, systolic murmur - GI/Abdominal GI/Abdominal exam: Present: normal bowel sounds, soft, no peritoneal signs. Absent: distended, tenderness - Extremities Exam Extremities exam: Present: warm, radial pulses palpable and symmetrical. Absent : calf tenderness, cyanotic, pedal edema - Neurological Exam Neurological exam: Present: CN II-XII intact, oriented X3, no focal deficits. Absent: pronater drift, facial droop, speech deficit - Skin Skin exam: Present: dry, intact
--- NOTE | 2017-02-18 19:25 | Electrocardiograph Report ---
[address] [place] [address] Test Date: 2017-02-16 Pat Name: Karen Morris Department: 113 Room: [facility] Gender: F Key Attendant: [id number] : 1945 Requested By: Keo Murray Order Number: [id number] Reading MD: David George MD Measurements Intervals [place] Rate: 84 P: 80 NH: 87 QRS: 60 QRSD: 114 T: 269 QT: 401 QTc: 442 Interpretive Statements SINUS RHYTHM WITH SHORT NH INTERVAL WITH OCCASIONAL VENTRICULAR PREMATURE COMPLEXES INFERIOR MYOCARDIAL INFARCTION, OF INDETERMINATE AGE WITH POSTERIOR EXTENSION Electronically Signed On 02-18-2017 19:23:39 EDT by David George MD
== END 2017-02-18 13:45 | disposition home or self-care (01) ==
LOC: 3BNU
PROVIDERS: ADMIT Internal Medicine; ATTEND Internal Medicine